=== PATIENT | female | born 1965 | race Caucasian/White ===

== ENCOUNTER 2025-04-10 20:16 | Emergency (ER) | payer OTHER ==
[~2025-04-10] VITALS: Ht 170.2 cm; Wt 64.5 kg
[2025-04-10] MEDS ORDERED: FAMOTIDINE 20 MG TAB PO ONE (20:45)
[2025-04-10] MEDS ORDERED: CETIRIZINE HCL 10 MG TAB PO ONE (21:00)
[2025-04-10] MEDS ORDERED: FAMOTIDINE 20 MG/ 2 ML VIAL IV ONE (21:00)
[2025-04-10] MEDS ORDERED: DEXAMETHASONE SOD PHOS 10 MG/ML VIAL IV ONE (21:00)
[2025-04-10 21:12] LABS: BASOPHILS 0.7 % (0.1-1.2); EOSINOPHILS 5.1 % (0.7-5.8); LYMPHOCYTES 28.4 % (19.3-51.7); MCH 29.9 PG (25.6-32.2); MCHC 34.4 g/dL (32.2-35.5); MCV 87.1 fL (79.4-94.8); MONOCYTES 7.6 % (4.7-12.5); NEUTROPHILS 57.8 % (34.0-71.1); RBC 5.18 M/uL (3.93-5.22)
--- OUTSIDE RECORDS SUMMARY | 2025-04-10 21:18 | XMS ---
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 Dentist: Machine Farmworker Current Dental Clinic PHONE: [phone] MAHIN HOOKS Nurse Practitioner Current PHONE: [phone] PATRICIO MARTIN [facility] Current PHONE: [phone] ARELY YANG [facility] Current PHONE: Unknown THERESE SALEH [facility] Current PHONE: Unknown Evan has no Care Guidelines for this patient. [facility] VISIT COUNT (12 MO.) 5 Leandro Segovia ([facility]) 1 SANAZ Carballo TOTAL 6 NOTE: Visits indicate total known visits. ED/UCC VISIT TRACKING (12 MO.) 04/10/2025 20:16 SANAZ [place] TYPE: Emergency COMPLAINT: - FACIAL NUMBNESS 03/13/2025 21:18 Leandro MARTINEZ OR ([employer]) TYPE: Emergency DIAGNOSES: - Acute stress reaction - face numbness - Facial Numbness 01/06/2025 12:07 Leandro MARTINEZ [place] ([employer]) TYPE: Emergency DIAGNOSES: - Anesthesia of skin - Face numbness - Numbness 10/10/2024 20:16 Leandro MARTINEZ [place] ([employer]) TYPE: Emergency DIAGNOSES: - Anesthesia of skin - Facial Numbness 09/13/2024 09:54 Leandro MARTINEZ [place] ([employer]) TYPE: Emergency DIAGNOSES: - Periapical abscess without sinus - Dental Pain - Numbness - Numbness in lips and face 07/21/2024 22:30 Leandro MARTINEZ [place] ([employer]) TYPE: Emergency DIAGNOSES: - Adverse effect of unspecified drugs, medicaments and biological substances, initial encounter - Numbness - Weakness INPATIENT VISIT TRACKING (12 MO.) No inpatient visits to display in this time frame [id number]
[2025-04-10 21:22] LABS: ALT (SGPT) 18.0 U/L (14-59); AST (SGOT) 20.0 U/L (15-37); GLOMERULAR FILTRATION RATE,EST 76.0 mL/min (>60); PROTEIN, TOTAL 7.1 g/dL (6.4-8.2); UREA NITROGEN 19.0 mg/dL (7-18)
[2025-04-10] MEDS ORDERED: ZYRTEC10 MG PO (22:12)
[2025-04-10 22:29] VITALS: BP 129/82
== END 2025-04-10 22:36 | disposition home or self-care (01) ==
LOC: ED 20:16
PROVIDERS: Family Medicine
DX: L50.1 Idiopathic urticaria (principal); J45.909 Unspecified asthma, uncomplicated
CPT/HCPCS: 36415; 70450; 80053; 83735; 85025; 86140; 96374; 96375; 99284-25; J1100; J1200

== ENCOUNTER 2025-04-16 13:31 | Emergency (ER) | payer OTHER ==
[~2025-04-16] VITALS: Ht 170.2 cm; Wt 69.5 kg
[~2025-04-16 13:31] MED LIST: ZYRTEC10 MG PO
--- OUTSIDE RECORDS SUMMARY | 2025-04-16 13:38 | XMS ---
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 [facility] VISIT COUNT (12 MO.) 6 Leandro Segovia ([facility]) 2 SANAZ Carballo TOTAL 8 NOTE: Visits indicate total known visits. ED/UCC VISIT TRACKING (12 MO.) 04/16/2025 13:31 SANAZ Sheikh TYPE: Emergency COMPLAINT: - ALLERGIC REACTION 04/12/2025 15:50 Leandro MARTINEZ [place] ([employer]) TYPE: Emergency DIAGNOSES: - Allergy, unspecified, initial encounter - allergic reaction - Shaking 04/10/2025 20:16 SANAZ Sheikh TYPE: Emergency COMPLAINT: - FACIAL NUMBNESS DIAGNOSES: - Idiopathic urticaria - Unspecified asthma, uncomplicated - Urticaria, unspecified 03/13/2025 21:18 Leandro MARTINEZ [place] ([employer]) TYPE: Emergency DIAGNOSES: - Acute stress reaction - face numbness - Facial Numbness 01/06/2025 12:07 Leandro MARTINEZ [place] ([employer]) TYPE: Emergency DIAGNOSES: - Anesthesia of skin - Face numbness - Numbness 10/10/2024 20:16 Leandro MARTINEZ [place] ([employer]) TYPE: Emergency DIAGNOSES: - Anesthesia of skin - Facial Numbness 09/13/2024 09:54 Leandro MARTINEZ [place] ([employer]) TYPE: Emergency DIAGNOSES: - Periapical abscess without sinus - Dental Pain - Numbness - Numbness in lips and face 07/21/2024 22:30 Leandro MARTINEZ [place] ([employer]) TYPE: Emergency DIAGNOSES: - Adverse effect of unspecified drugs, medicaments and biological substances, initial encounter - Numbness - Weakness INPATIENT VISIT TRACKING (12 MO.) No inpatient visits to display in this time frame [id number]
[2025-04-16 15:19] VITALS: BP 138/96
== END 2025-04-16 15:20 | disposition home or self-care (01) ==
LOC: ED 13:31
DX: R20.0 Anesthesia of skin (principal); T46.1X5A Adverse effect of calcium-channel blockers, initial encounter; I10 Essential (primary) hypertension; Z88.8 Allergy status to other drugs, medicaments and biological substances
CPT/HCPCS: 99283

== ENCOUNTER 2025-04-25 16:08 | Emergency (ER) | payer OTHER ==
[~2025-04-25] VITALS: Ht 170.2 cm; Wt 71.0 kg
--- OUTSIDE RECORDS SUMMARY | 2025-04-25 16:15 | XMS ---
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 [facility] VISIT COUNT (12 MO.) 6 Leandro Segovia ([facility]) 3 SANAZ Carballo TOTAL 9 NOTE: Visits indicate total known visits. ED/UCC VISIT TRACKING (12 MO.) 04/25/2025 16:09 SANAZ Tyson [place] TYPE: Emergency COMPLAINT: - FACE IS NUMB 04/16/2025 13:31 SANAZ Tyson [place] TYPE: Emergency COMPLAINT: - ALLERGIC REACTION DIAGNOSES: - Adverse effect of calcium-channel blockers, initial encounter - Allergy status to other drugs, medicaments and biological substances - Anesthesia of skin - Essential (primary) hypertension 04/12/2025 15:50 Leandro MARTINEZ OR ([facility]) TYPE: Emergency DIAGNOSES: - Allergy, unspecified, initial encounter - allergic reaction - Shaking 04/10/2025 20:16 SANAZ Tyson [place] TYPE: Emergency COMPLAINT: - FACIAL NUMBNESS DIAGNOSES: - Idiopathic urticaria - Unspecified asthma, uncomplicated - Urticaria, unspecified 03/13/2025 21:18 Leandro Cal JudyMelony MARTINEZ [place] ([employer]) TYPE: Emergency DIAGNOSES: - Acute stress reaction - face numbness - Facial Numbness 01/06/2025 12:07 Leandro Mccall JudyMelony MARTINEZ [place] ([employer]) TYPE: Emergency DIAGNOSES: - Anesthesia of skin - Face numbness - Numbness 10/10/2024 20:16 Leandro MARTINEZ [place] ([employer]) TYPE: Emergency DIAGNOSES: - Anesthesia of skin - Facial Numbness 09/13/2024 09:54 Leandro MARTINEZ [place] ([employer]) TYPE: Emergency DIAGNOSES: - Periapical abscess without sinus - Dental Pain - Numbness - Numbness in lips and face 07/21/2024 22:30 Leandro PRATT ([facility] ) TYPE: Emergency DIAGNOSES: - Adverse effect of unspecified drugs, medicaments and biological substances, initial encounter - Numbness - Weakness INPATIENT VISIT TRACKING (12 MO.) No inpatient visits to display in this time frame [id number]
[2025-04-25] MEDS ORDERED: PREDNISONE20 MG PO (18:34)
[2025-04-25 18:41] VITALS: BP 120/70
== END 2025-04-25 18:42 | disposition home or self-care (01) ==
LOC: ED 16:08
DX: T78.119A Other adverse food reaction due to milk and dairy products with baked milk tolerance/reactivity, unspecified, initial encounter (principal); L29.9 Pruritus, unspecified
CPT/HCPCS: 99282

== ENCOUNTER 2025-04-29 20:39 | Emergency (ER) | payer OTHER ==
[~2025-04-29] VITALS: Ht 170.2 cm; Wt 67.5 kg
[~2025-04-29 20:39] MED LIST changes: +PREDNISONE20 MG PO
--- OUTSIDE RECORDS SUMMARY | 2025-04-29 20:47 | XMS ---
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 No recent Security Events currently on file CRITERIA MET - 6 ED Visits in 6 Months - [facility] - 2 Visits in 30 Days - [facility] - 3 Facilities in 90 Days CARE PROVIDERS -, [facility] Dentist: Orchard Manager Current Dental Clinic PHONE: [phone] MAHIN HOOKS Nurse Practitioner Current PHONE: [phone] PATRICIO MARTIN Family Medicine Current PHONE: [phone] ARELY YANG Family Medicine Current PHONE: Unknown THERESE SALEH [facility] Current PHONE: Unknown Evan has no Care Guidelines for this patient. [facility] VISIT COUNT (12 MO.) 6 Leandro Segovia ([facility]) [address] [facility] [address] [facility] 1 [facility] ([employer] [facility] TOTAL 11 NOTE: Visits indicate total known visits. ED/UCC VISIT TRACKING (12 MO.) 04/29/2025 20:[address] [facility] [address] [facility] [place] TYPE: Emergency COMPLAINT: - ALLERGIC REACTION 04/27/2025 10:21 [facility] Itzel SANCHEZ ([employer]) TYPE: Emergency DIAGNOSES: - Anesthesia of skin - Paresthesia of skin - Headache - Headache (Adult - Re-evaluation) 04/25/2025 16:09 SANAZ Tyson [place] TYPE: Emergency COMPLAINT: - FACE IS NUMB DIAGNOSES: - Other adverse food reaction due to milk and dairy products with baked milk tolerance/reactivity, unspecified, initial encounter - Other adverse food reactions, not elsewhere classified, initial encounter - Pruritus, unspecified 04/16/2025 13:[address] [facility] [address] [facility] TYPE: Emergency COMPLAINT: - ALLERGIC REACTION DIAGNOSES: - Adverse effect of calcium-channel blockers, initial encounter - Allergy status to other drugs, medicaments and biological substances - Anesthesia of skin - Essential (primary) hypertension 04/12/2025 15:50 Leandro [place]ARTINEZ [place] ([employer]) TYPE: Emergency DIAGNOSES: - Allergy, unspecified, initial encounter - allergic reaction - Shaking 04/10/2025 20:[address] [facility] [address] [facility] [place] TYPE: Emergency COMPLAINT: - FACIAL NUMBNESS DIAGNOSES: - Idiopathic urticaria - Unspecified asthma, uncomplicated - Urticaria, unspecified 03/13/2025 21:18 Leandro MARTINEZ [place] ([employer]) TYPE: Emergency DIAGNOSES: - Acute stress reaction - face numbness - Facial Numbness 01/06/2025 12:07 Leandro MARTINEZ [place] ([employer]) TYPE: Emergency DIAGNOSES: - Anesthesia of skin - Face numbness - Numbness 10/10/2024 20:16 Leandro MRATINEZ [place] ([employer]) TYPE: Emergency DIAGNOSES: - Anesthesia of skin - Facial Numbness 09/13/2024 09:54 Leandro MARTINEZ [place] ([employer]) TYPE: Emergency DIAGNOSES: - Periapical abscess without sinus - Dental Pain - Numbness - Numbness in lips and face 07/21/2024 22:30 Leandro MARTINEZ [place] ([employer]) TYPE: Emergency DIAGNOSES: - Adverse effect of unspecified drugs, medicaments and biological substances, initial encounter - Numbness - Weakness INPATIENT VISIT TRACKING (12 MO.) No inpatient visits to display in this time frame [id number]
[2025-04-29] MEDS ORDERED: DEXAMETHASONE SOD PHOS 10 MG/ML VIAL IV ONE (21:15)
[2025-04-29] MEDS ORDERED: FAMOTIDINE 20 MG/ 2 ML VIAL IV ONE (21:15)
[2025-04-29 22:47] VITALS: BP 152/100
== END 2025-04-29 22:49 | disposition home or self-care (01) ==
LOC: ED 20:39
DX: R20.2 Paresthesia of skin (principal); T38.0X5A Adverse effect of glucocorticoids and synthetic analogues, initial encounter; Z88.2 Allergy status to sulfonamides; Z88.8 Allergy status to other drugs, medicaments and biological substances; Z79.899 Other long term (current) drug therapy
CPT/HCPCS: 96374; 96375; 99283-25; J1100; J1200

== ENCOUNTER 2025-05-01 13:11 | Emergency (ER) | payer OTHER ==
[~2025-05-01] VITALS: Ht 170.2 cm; Wt 65.8 kg
--- OUTSIDE RECORDS SUMMARY | 2025-05-01 13:18 | XMS ---
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 No recent Security Events currently on file CRITERIA MET - 6 ED Visits in 6 Months - [facility] - 2 Visits in 30 Days - [facility] - 3 Facilities in 90 Days CARE PROVIDERS -, [facility] Dentist: Quality Improvement Coordinator Current Dental Clinic PHONE: [phone] MAHIN HOOKS Nurse Practitioner Current PHONE: [phone] PATRICIO MARTIN Family Medicine Current PHONE: [phone] ARELY YANG Family Medicine Current PHONE: Unknown THERESE SALEH [facility] Current PHONE: Unknown Evan has no Care Guidelines for this patient. [facility] VISIT COUNT (12 MO.) 6 Leandro Segovia ([facility]) [address] [facility] [address] [facility] [place] 1 [facility] TOTAL 12 NOTE: Visits indicate total known visits. ED/UCC VISIT TRACKING (12 MO.) 05/01/2025 13:12 [facility] [place]: [place] COMPLAINT: - ARM PAIN 04/29/2025 20:40 [facility] [place] TYPE: Emergency COMPLAINT: - ALLERGIC REACTION 04/27/2025 10:21 [facility] Itzel SANCHEZ ([employer]) TYPE: Emergency DIAGNOSES: - Anesthesia of skin - Paresthesia of skin - Headache - Headache (Adult - Re-evaluation) 04/25/2025 16:[address] [facility] [address] [facility] [place] TYPE: Emergency COMPLAINT: - FACE IS NUMB DIAGNOSES: - Other adverse food reaction due to milk and dairy products with baked milk tolerance/reactivity, unspecified, initial encounter - Other adverse food reactions, not elsewhere classified, initial encounter - Pruritus, unspecified 04/16/2025 13:31 SANAZ Sheikh TYPE: Emergency COMPLAINT: - ALLERGIC REACTION DIAGNOSES: - Adverse effect of calcium-channel blockers, initial encounter - Allergy status to other drugs, medicaments and biological substances - Anesthesia of skin - Essential (primary) hypertension 04/12/2025 15:50 Leandro PRATT ([facility]) TYPE: Emergency DIAGNOSES: - Allergy, unspecified, initial encounter - allergic reaction - Shaking 04/10/2025 20:16 SANAZ Sheikh TYPE: Emergency COMPLAINT: - FACIAL NUMBNESS DIAGNOSES: - Idiopathic urticaria - Unspecified asthma, uncomplicated - Urticaria, unspecified 03/13/2025 21:18 Leandro Ronsonya JudyMelony MARTINEZ [place] ([employer]) TYPE: Emergency DIAGNOSES: - Acute stress reaction - face numbness - Facial Numbness 01/06/2025 12:07 Leandro MARTINEZ [place] ([employer]) TYPE: Emergency DIAGNOSES: - Anesthesia of skin - Face numbness - Numbness 10/10/2024 20:16 Leandro Cal MARTINEZ [place] ([employer]) TYPE: Emergency DIAGNOSES: - Anesthesia of skin - Facial Numbness 09/13/2024 09:54 Leandro Cal MARTINEZ [place] ([employer]) TYPE: Emergency DIAGNOSES: - Periapical abscess without sinus - Dental Pain - Numbness - Numbness in lips and face 07/21/2024 22:30 Leandro PRATT ([facility]) TYPE: Emergency DIAGNOSES: - Adverse effect of unspecified drugs, medicaments and biological substances, initial encounter - Numbness - Weakness INPATIENT VISIT TRACKING (12 MO.) No inpatient visits to display in this time frame [id number]
[2025-05-01 21:28] VITALS: BP 144/98
== END 2025-05-01 21:33 | disposition home or self-care (01) ==
LOC: ED 13:11
DX: R20.2 Paresthesia of skin (principal); Z88.5 Allergy status to narcotic agent; Z88.8 Allergy status to other drugs, medicaments and biological substances
CPT/HCPCS: 99284

== ENCOUNTER 2025-05-04 13:12 | Emergency (ER) | payer OTHER ==
[~2025-05-04] VITALS: Ht 170.2 cm; Wt 65.0 kg
--- OUTSIDE RECORDS SUMMARY | 2025-05-04 13:14 | XMS ---
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 No recent Security Events currently on file CRITERIA MET - 6 ED Visits in 6 Months - [facility] - 2 Visits in 30 Days - [facility] - 3 Facilities in 90 Days CARE PROVIDERS -, [facility] Dentist: Continuous Miner Operator Helper Current Dental Clinic PHONE: [phone] MAHIN HOOKS Nurse Practitioner Current PHONE: [phone] PATRICIO MARTIN Family Medicine Current PHONE: [phone] ARELY YANG Family Medicine Current PHONE: Unknown THERESE SALEH [facility] Current PHONE: Unknown Evan has no Care Guidelines for this patient. [facility] VISIT COUNT (12 MO.) 6 SANAZ Carballo 6 Leandro Segovia ([facility]) 1 [facility] TOTAL 13 NOTE: Visits indicate total known visits. ED/UCC VISIT TRACKING (12 MO.) 05/04/2025 13:14 SANAZ Tyson [place] TYPE: Emergency COMPLAINT: - FACIAL NUMBNESS 05/01/2025 13:12 SANAZ Tyson [place] TYPE: Emergency COMPLAINT: - ARM PAIN DIAGNOSES: - Allergy status to narcotic agent - Allergy status to other drugs, medicaments and biological substances - Paresthesia of skin 04/29/2025 20:40 SANAZ Tyson [place] TYPE: Emergency COMPLAINT: - ALLERGIC REACTION DIAGNOSES: - Adverse effect of glucocorticoids and synthetic analogues, initial encounter - Allergy status to other drugs, medicaments and biological substances - Allergy status to sulfonamides - Other prison (current) drug therapy - Paresthesia of skin 04/27/2025 10:21 [facility]. Mary MAnna SANCHEZ ([place] [place]) TYPE: Emergency DIAGNOSES: - Anesthesia of skin - Paresthesia of skin - Headache - Headache (Adult - Re-evaluation) 04/25/2025 16:[address] [facility] [address] [facility] [place] TYPE: Emergency COMPLAINT: - FACE IS NUMB DIAGNOSES: - Other adverse food reaction due to milk and dairy products with baked milk tolerance/reactivity, unspecified, initial encounter - Other adverse food reactions, not elsewhere classified, initial encounter - Pruritus, unspecified 04/16/2025 13:[address] [facility] [address] [facility] [place] TYPE: Emergency COMPLAINT: - ALLERGIC REACTION DIAGNOSES: - Adverse effect of calcium-channel blockers, initial encounter - Allergy status to other drugs, medicaments and biological substances - Anesthesia of skin - Essential (primary) hypertension 04/12/2025 15:50 Leandro MARTINEZ [place] ([facility]) TYPE: Emergency DIAGNOSES: - Allergy, unspecified, initial encounter - allergic reaction - Shaking 04/10/2025 20:16 SANAZ Sheikh TYPE: Emergency COMPLAINT: - FACIAL NUMBNESS DIAGNOSES: - Idiopathic urticaria - Unspecified asthma, uncomplicated - Urticaria, unspecified 03/13/2025 21:18 Leandro MARTINEZ [place] ([employer]) TYPE: Emergency DIAGNOSES: - Acute stress reaction - face numbness - Facial Numbness 01/06/2025 12:07 Leandro MARTINEZ [place] ([employer]) TYPE: Emergency DIAGNOSES: - Anesthesia of skin - Face numbness - Numbness 10/10/2024 20:16 Leandro MARTINEZ [place] ([employer]) TYPE: Emergency DIAGNOSES: - Anesthesia of skin - Facial Numbness 09/13/2024 09:54 Leandro DavidAvila [place] ([employer]) TYPE: Emergency DIAGNOSES: - Periapical abscess without sinus - Dental Pain - Numbness - Numbness in lips and face 07/21/2024 22:30 Leandro MARTINEZ [place] ([employer]) TYPE: Emergency DIAGNOSES: - Adverse effect of unspecified drugs, medicaments and biological substances, initial encounter - Numbness - Weakness INPATIENT VISIT TRACKING (12 MO.) No inpatient visits to display in this time frame [id number]
[2025-05-04 20:50] VITALS: BP 139/87
== END 2025-05-04 20:50 | disposition home or self-care (01) ==
LOC: ED 13:12
DX: R20.0 Anesthesia of skin (principal); Z91.041 Radiographic dye allergy status; Z88.1 Allergy status to other antibiotic agents; Z88.8 Allergy status to other drugs, medicaments and biological substances
CPT/HCPCS: 99283